=== PATIENT | female | born 1995 | race Caucasian/White ===

== ENCOUNTER → 2018-07-08 18:24 | Outpatient (CLI) | payer SELFPAY | PROVIDERS: Family Provider Family Medicine; PCP Family Medicine; Referring Provider Otolaryngology Otolaryngology/Facial Plastic Surgery; Visit Provider Otolaryngology Otolaryngology/Facial Plastic Surgery | DX: J32.9 Chronic sinusitis, unspecified (principal); J02.9 Acute pharyngitis, unspecified | CPT/HCPCS: 87070; 87077; 87205 ==

== ENCOUNTER → 2019-02-26 | Outpatient (CLI) | payer OTHER, SELFPAY ==
--- NOTE | 2019-02-26 11:44 | RAD_ITS ---
CLINICAL HISTORY: Female, 23 years old. Left hip pain. PROCEDURE: ARTHROGRAM - LEFT HIP CONSENT: The procedure as well as the benefits and possible complications including infection and bleeding with spine to the patient. Informed consent was obtained. FLUOROSCOPY TIME (if supplied): (0:30) minutes/seconds Injection Information: 10 cc of dilute Magnevist. Number of images obtained: 1 TECHNIQUE: (All elements of maximal sterile barrier technique followed, including US elements as applicable) The patient was in the supine position. Overlying skin was prepped and draped in usual sterile fashion. Final concentric complication and under direct fluoroscopic guidance, a 22-gauge spinal needle was placed into the hip joint. 2 cc of Isovue-300 was injected for confirmation. Following this, 10 cc of dilute Magnevist was injected. The patient tolerated the procedure well. MRI will follow. RAD/Arthrogram Hip w/ MRI IMPRESSION: Successful left hip arthrogram for MRI. Electronically Signed: Ravi Aragon, at 13:05 EDT , Service support ,
--- NOTE | 2019-02-26 13:00 | MRI_ITS ---
STUDY: MRI ARTHROGRAM OF LEFT HIP REASON FOR EXAM: Female, 23 years old. 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 TECHNIQUE: Standardized fat and water weighted pulse sequences were obtained in all 3 orthogonal planes after the intra-articular administration of a solution containing 2 cc of Isovue-300 contrast and 10 cc of dilute Magnevist. COMPARISON: MR arthrogram performed today. FINDINGS: There is adequate distention of the left hip joint. Normal hip joint without articular joint space narrowing. Normal acetabulum. Nondisplaced tear of the base of the anterior superior acetabular labrum (coronal series 5 image 17, sagittal series 6 images 15-18). Normal femoral head. Normal femoral neck and intratrochanteric region. Normal gluteus minimus, medius and iliopsoas tendons and distal insertions. There is no trochanteric, iliopsoas or iliopectineal bursitis. Normal superior and inferior pubic rami. Normal pubic symphysis. Normal ischial tuberosity. Normal origin of the hamstring tendons. Normal visualized iliac wing, sacroiliac joint, and sacral ala. Normal visualized soft tissue structures of the pelvis. MRI/Lower Ext/Jt Only/W Contrast IMPRESSION: Nondisplaced tear of the base of the anterior superior acetabular labrum. No other abnormality. Electronically Signed: Jese Morrell MD at 17:59 EDT , Service support ,
== END | disposition home or self-care (01) ==
LOC: RAD 11:36 → MRI 11:38
PROVIDERS: Family Provider Internal Medicine; PCP Internal Medicine; Referring Provider Physician Assistant Surgical; Visit Provider Physician Assistant Surgical
DX: M25.552 Pain in left hip (principal)
CPT/HCPCS: 27093; 73722; 77002; A9575; Q9967

== ENCOUNTER → 2020-11-27 14:58 | Outpatient (CLI) | payer BC, SELFPAY ==
--- NOTE | 2020-11-27 15:01 | VDLE_ITS ---
Reason For Study: PAIN RIGHT LEFT CFV is compressible, spontaneous, phasic, GSV is normal. competent and demonstrates normal CFV is compressible, spontaneous, phasic, augmentation. competent, and demonstrates normal Procedure augmentation. Exam performed in department. FV is compressible, spontaneous, phasic, A preliminary report was called and/or faxed competent and demonstrates normal to JENNIFER ESTRELLA. augmentation. POP V is compressible, spontaneous, phasic, competent and demonstrates normal augmentation. T/P Trunk is compressible. PTV is compressible. LT PerV is compressible. VL/Venous Duplex US, Unilateral Interpretation Summary Deep veins of the left lower extremity are patent and compressible segmentally. There is no evidence of left lower extremity deep vein thrombosis. Valvular competence appears intac t within the proximal deep venous system on the left . The left great saphenous vein appears patent a nd compressible segmentally. Ordering Physician: Jennifer Estrella Referring Physician: CAMILLE NORRIS Performed By: Vanna Mcdermott, SHALONDACS, RVT
== END ==
PROVIDERS: PCP Internal Medicine; Referring Provider Nurse Practitioner; Visit Provider Nurse Practitioner
DX: M79.605 Pain in left leg (principal)
CPT/HCPCS: 93971

== ENCOUNTER 2022-07-11 14:01 | Emergency (ER) | payer BC, SELFPAY ==
[2022-07-11 14:02] VITALS: BP 127/96; PULSE 113; RESP 17; TEMP 36.6; O2SAT 99; BMI 17.4
--- NOTE | 2022-07-11 14:44 | EX.ED.DYSGE1 ---
HPI History of Present Illness Chief Complaint: Nausea/Vomiting/Diarrhea Narrative Narrative: Patient presents with few day history of nausea vomiting and watery diarrhea. She also has intermittent abdominal cramping. She does not know of any sick contacts. She has no fevers or chills. She has no urinary symptoms. She is denying . She has no upper respiratory symptoms or shortness of breath she did notice a temperature up to 99 PFSH PFS Medical History no medical history Home Medications dicyclomine 20 mg tablet 20 mg PO BID #10 tabs 07/11/22 [Rx Last Taken Unknown] potassium chloride 40 mEq/15 mL oral liquid 40 meq (15 mL) PO DAILY #473 mL 07/11/22 [Rx Last Taken Unknown] Allergy/AdvReac Type Severity Reaction Status Date / Time No Known Allergies Allergy Verified 07/11/22 14:01 Social History Smoking Status: Never smoker ROS ROS ED ROS Narrative Past medical history: Reviewed, none Medications: Reviewed Social history: Noncontributory Review of systems: All systems negative except as indicated General: No fever Eyes: No visual changes ENT: No upper airway congestion, normal voice Neck: No neck pain Cardiovascular: No chest pain Respiratory: No shortness of breath or cough Gastrointestinal: As in HPI Genitourinary: No dysuria Musculoskeletal: Denies myalgias no difficulty with ambulation Skin: No rash Neurological: No memory loss, confusion or any focal weakness Psych: No recent behavioral changes Hematologic: No easy bleeding or easy bruising EXAM Physical Exam Narrative Exam Narrative: Physical exam General: Well nourished, Well developed, No Acute Distress Head: Normocephalic, Atraumatic Eyes: Conjunctiva not pale ENT: Somewhat dry mucous membranes Neck: Supple, Nontender, No lymphadenopathy Cardiovascular: Regular rate, Regular rhythm Respiratory: No distress, CTA bilaterally Abdomen: Soft, I am palpating throughout the abdomen I do not appreciate any pain. Back: Nontender, Normal Inspection. Negative for: CVA tenderness Extremities: Nontender, No edema Skin: Normal color, No rash Neurological: Alert, Normal Strength, Normal Sensation Psychological: Normal affect Const Vital Signs: 07/11/22 14:02 Temperature 97.8 F Temperature Source Temporal Pulse Rate 113 H Respiratory Rate 17 Blood Pressure 127/96 H Blood Pressure Mean 106 Pulse Ox 99 Oxygen Delivery Method Room Air MDM MDM MDM Narrative Medical decision making narrative: Patient's work-up is unremarkable, she likely has a viral GI etiology. She improved after IV fluids, her potassium was slightly low which I will address. Otherwise I believe she can be safely discharged home. Lab Data Labs: Laboratory Results - last 24 hr 07/11/22 07/11/22 07/11/22 14:24 14:24 15:24 WBC 2.8 L RBC 5.11 Hgb 15.3 H Hct 44.0 MCV 86.1 MCH 29.9 MCHC 34.8 RDW Std Deviation 37.6 RDW Coeff of Jenny 11.9 Plt Count 221 MPV 9.3 Immature Gran % (Auto) 0.400 Neut % (Auto) 56.9 Lymph % (Auto) 24.0 Leake % (Auto) 17.9 H Eos % (Auto) 0.4 Baso % (Auto) 0.4 Absolute Neuts (auto) 1.6 L Absolute Lymphs (auto) 0.67 L Nucleated RBC % 0 Sodium 137 Potassium 2.9 L Chloride 105 Carbon Dioxide 24.0 Anion Gap 8 BUN 12 Creatinine 0.94 Estim Creat Clear Calc 63.54 Est GFR (MDRD) Af Amer 92 Est GFR (MDRD) Non-Af 76 BUN/Creatinine Ratio 12.8 Glucose 98 Calcium 8.7 Total Bilirubin 0.30 AST 47 H ALT 60 H Alkaline Phosphatase 59 Total Protein 7.7 Albumin 4.2 Globulin 3.5 Albumin/Globulin Ratio 1.2 Lipase 101 Urine Color Straw Urine Clarity Clear Urine pH 6.5 Ur Specific [place] 1.010 Urine Protein Negative Urine Glucose (UA) Normal Urine Ketones Negative Urine Occult Blood Negative Urine Nitrite Negative Urine Bilirubin Negative Urine Urobilinogen Normal Ur Leukocyte Esterase Negative Urine RBC 0 SEEN Urine WBC 0 SEEN Ur Squamous Epith Cells 0-5 SEEN Urine Bacteria RARE Urine Mucus 0 SEEN Urine Test Negative Discharge Plan Triage Chief Complaint: Nausea/Vomiting/Diarrhea ED Provider: Anjel Gonsalez Dx/Rx/DC Orders Clinical Impression: Acute hypokalemia, Diarrhea Prescriptions: New potassium chloride 40 mEq/15 mL liquid 40 meq PO DAILY Qty: 473 0RF dicyclomine 20 mg tablet 20 mg PO BID Qty: 10 0RF Primary Care Provider: Emmanuelle De León Referrals: Emmanuelle De León DO [Primary Care Provider] - 3-5 Days Disposition Disposition: Home, Self Care
[2022-07-11 15:15] LABS: Absolute Lymphocyte Count 0.67 X10^3/uL (0.83-4.51); Absolute Neutrophil Count 1.6 X10^3/uL (2.0-7.7); Basophil# 0.01 X10^3/uL; Basophil% 0.4 % (0-1); Eosinophil# 0.01 X10^3/uL; Eosinophils% 0.4 % (0-5); Hemoglobin 15.3 g/dL (12.0-15.0); Lymphocyte # 0.67 X10^3/ul (0.83-4.51); Mean Corp Hgb Conc 34.8 g/dL (32-36); Mean Corpuscular Hgb 29.9 pg (27.0-32.0); Mean Corpuscular Volume 86.1 fL (81-99); Mean Platelet Vol. 9.3 fl (6.2-12.0); Monocyte% 17.9 % (0-10); NRBC Flagged by Analyzer 0 % (0-5); Neutrophil # 1.59 X10^3/uL (2.7-7.7); Neutrophil % 56.9 % (47-70); Platelet Count 221 K/mm3 (150-450); RBC Distribution Width CV 11.9 % (11.6-14.6); RBC Distribution Width SD 37.6 fl (35.1-43.9); Red Blood Count 5.11 M/mm3 (4.2-5.4); White Blood Count 2.8 K/mm3 (4.4-11.0)
[2022-07-11] MEDS: Ondansetron 4 MG/2 ML Vial IV (15:22)
[2022-07-11] MEDS: 0.9% Normal Saline 1,000 ML 1000 ML IV (15:22)
[2022-07-11 15:30] LABS: Mucous, Urine 0 SEEN /hpf (<or=2+); Red Blood Cells-Urine 0 SEEN /hpf (0-5); White Blood Cells 0 SEEN /hpf (0-5)
[2022-07-11 15:34] LABS: Color, Urine Straw (Yellow); Glucose, Dipstick Normal (Normal); Ketone-Dipstick Negative (Negative); Leukocyte Esterase-Dipstick Negative /ul (Negative); Nitrite-Dipstick Negative (Negative); Occult Blood-Urine Negative /ul (Negative); Protein-Dipstick Negative (Negative); Urine Bilirubin Dipstick Negative (Negative); Urine Clarity Clear (Clear); Urine Urobilinogen Normal (Normal); Urine pH 6.5 (5.0 - 8.0)
[2022-07-11 15:39] LABS: Internal QC Validated? YES +Cl - CLEAR BKGD; Pregnancy, Urine Negative Negative
[2022-07-11 15:41] LABS: ALB/GLOB Ratio 1.2 RATIO (0.9-2.4); AST(SGOT) 47 U/L (15-37); Alanine Aminotransfer ALT/SGPT 60 U/L (13-56); Albumin, Serum 4.2 g/dL (3.2-5.0); Alkaline Phosphatase 59 U/L (45-117); Anion Gap 8 (5-15); BUN 12 mg/dL (7-18); BUN/Creat Ratio 12.8 RATIO (10-20); Calcium,Total 8.7 mg/dL (8.5-10.1); Chloride 105 mmol/L (98-107); Creatinine, Serum 0.94 mg/dL (0.55-1.02); EST Glomerular Filtration Rate 76 mL/min (>60); Est Glom Filt Rate - Afr Amer 92 mL/min (>60); Estimated Creatinine Clearance 63.54 ml/min; Globulin 3.5 g/dL (2.2-4.2); Glucose 98 mg/dL (74-106); Lipase 101 U/L (73-393); Potassium 2.9 mmol/L (3.5-5.1); Protein, Total 7.7 g/dL (6.4-8.2); Sodium Level 137 mmol/L (136-145)
[2022-07-11 16:07] LABS: Bacteria RARE /hpf (None Seen); Squamous Epithelial Cells - UA 0-5 SEEN /hpf (5-10)
[2022-07-11] MEDS: Potassium Chloride Oral Tablet 20 MEQ 40 MEQ PO (18:12)
[2022-07-11 18:17] VITALS: PULSE 69; RESP 16; O2SAT 97
== END 2022-07-11 18:17 | disposition home or self-care (01) ==
PROVIDERS: Emergency Provider Emergency Medicine; PCP Internal Medicine; Visit Provider Emergency Medicine
DX: E87.6 Hypokalemia (principal); R10.9 Unspecified abdominal pain; R19.7 Diarrhea, unspecified; R11.2 Nausea with vomiting, unspecified
CPT/HCPCS: 80053; 81001; 81025; 83690; 85025; 87428; 96361; 96374; 99284; J7030; J2405

== ENCOUNTER → 2023-10-30 | Outpatient (CLI) | payer BC, SELFPAY ==
[2023-10-30 12:28] LABS: Absolute Lymphocyte Count 1.67 X10^3/uL (0.83-4.51); Absolute Neutrophil Count 1.9 X10^3/uL (2.0-7.7); Basophil# 0.02 X10^3/uL; Basophil% 0.5 % (0-1); Eosinophil# 0.07 X10^3/uL; Eosinophils% 1.7 % (0-5); Hemoglobin 13.3 g/dL (12.0-15.0); Lymphocyte # 1.67 X10^3/ul (0.83-4.51); Lymphocyte % 41.1 % (19-41); Mean Corp Hgb Conc 34.1 g/dL (32-36); Mean Corpuscular Hgb 30.6 pg (27.0-32.0); Mean Corpuscular Volume 89.7 fL (81-99); Mean Platelet Vol. 9.1 fl (6.2-12.0); Monocyte# 0.38 X10^3/uL; Monocyte% 9.4 % (0-10); NRBC Flagged by Analyzer 0 % (0-5); Neutrophil # 1.91 X10^3/uL (2.7-7.7); Neutrophil % 47.1 % (47-70); Platelet Count 278 K/mm3 (150-450); RBC Distribution Width CV 12.2 % (11.6-14.6); RBC Distribution Width SD 40.1 fl (35.1-43.9); Red Blood Count 4.35 M/mm3 (4.2-5.4); White Blood Count 4.1 K/mm3 (4.4-11.0)
[2023-10-30 12:47] LABS: ALB/GLOB Ratio 1.3 RATIO (0.9-2.4); AST(SGOT) 31 U/L (15-37); Alanine Aminotransfer ALT/SGPT 34 U/L (13-56); Albumin, Serum 4.1 g/dL (3.2-5.0); Alkaline Phosphatase 63 U/L (45-117); Anion Gap 4 (5-15); BUN 19 mg/dL (7-18); BUN/Creat Ratio 24.3 RATIO (10-20); Chloride 105 mmol/L (98-107); Creatinine, Serum 0.78 mg/dL (0.55-1.02); EST Glomerular Filtration Rate 93 mL/min (>60); Est Glom Filt Rate - Afr Amer 113 mL/min (>60); Globulin 3.2 g/dL (2.2-4.2); Glucose 89 mg/dL (74-106); Potassium 3.4 mmol/L (3.5-5.1); Protein, Total 7.3 g/dL (6.4-8.2); Sodium Level 137 mmol/L (136-145); Thyroid Stim Hormone (TSH) 2.42 uIU/mL (0.358-3.74)
[2023-10-30 13:01] LABS: Insulin 3.6 mU/L (2.6-37.6); Vitamin D,25 Hydroxy 42.9 ng/mL
== END | disposition home or self-care (01) ==
LOC: BIMLAB 08:19
PROVIDERS: PCP Internal Medicine; Referring Provider Internal Medicine; Visit Provider Internal Medicine
DX: R25.1 Tremor, unspecified (principal); F41.9 Anxiety disorder, unspecified; E16.2 Hypoglycemia, unspecified
CPT/HCPCS: 36415; 80053; 82306; 83525; 84443; 85025

== ENCOUNTER → 2024-10-28 | Outpatient (CLI) | payer BC, SELFPAY ==
[2024-10-28 13:00] LABS: Absolute Lymphocyte Count 1.75 X10^3/uL (0.83-4.51); Absolute Neutrophil Count 2.6 X10^3/uL (2.0-7.7); Basophil# 0.04 X10^3/uL; Basophil% 0.8 % (0-1); Eosinophil# 0.12 X10^3/uL; Eosinophils% 2.4 % (0-5); Hematocrit 38.6 % (37-47); Hemoglobin 13.3 g/dL (12.0-15.0); Lymphocyte # 1.75 X10^3/ul (0.83-4.51); Lymphocyte % 35.1 % (19-41); Mean Corp Hgb Conc 34.5 g/dL (32-36); Mean Corpuscular Hgb 30.5 pg (27.0-32.0); Mean Corpuscular Volume 88.5 fL (81-99); Monocyte# 0.49 X10^3/uL; Monocyte% 9.8 % (0-10); NRBC Flagged by Analyzer 0 % (0-5); Neutrophil # 2.58 X10^3/uL (2.7-7.7); Neutrophil % 51.7 % (47-70); Platelet Count 293 K/mm3 (150-450); RBC Distribution Width CV 12.2 % (11.6-14.6); RBC Distribution Width SD 40.2 fl (35.1-43.9); Red Blood Count 4.36 M/mm3 (4.2-5.4)
[2024-10-28 14:03] LABS: ALB/GLOB Ratio 1.9 RATIO (0.9-2.4); AST(SGOT) 26 U/L (<=31); Alanine Aminotransfer ALT/SGPT 21 U/L (<=34); Albumin, Serum 4.5 g/dL (3.5-5.0); Alkaline Phosphatase 61 U/L (35-104); Anion Gap 12 (5-15); BUN 13 mg/dL (4-19); BUN/Creat Ratio 15.8 RATIO (10-20); Calcium,Total 9.4 mg/dL (7.6-11.0); Carbon Dioxide 21.9 mmol/L (21.0-32.0); Chloride 105 mmol/L (98-108); Creatinine, Serum 0.84 mg/dL (0.70-1.20); EST Glomerular Filtration Rate 97 (>60); Globulin 2.4 g/dL (2.2-4.2); Glucose 88 mg/dL (70-99); Potassium 4.1 mmol/L (3.3-5.1); Protein, Total 6.9 g/dL (5.9-8.4); Rheumatoid Factor < 10.0 IU/mL (<15); Sodium Level 138 mmol/L (133-145); Total Bilirubin 0.35 mg/dL (0.00-1.30); Vitamin D,25 Hydroxy 33.3 ng/mL (30-100)
[2024-10-29 12:08] LABS: ANTINUCLEAR ANTIBODIES DIRECT Negative (Negative); Anti-Centromere B Ab <0.2 AI (0.0-0.9); Anti-Chromatin <0.2 AI (0.0-0.9); Anti-Jo <0.2 AI (0.0-0.9); Anti-Scleroderma-70 AB <0.2 AI (0.0-0.9); Anti-dsDNA Ab <1 IU/mL (0-9); CCP IgG Antibodies 8 units (0-19); RNP Ab <0.2 AI (0.0-0.9); SJOGREN'S Anti-SS-A test < 0.2 AI (0.0-0.9); SJOGREN'S Anti-SS-B test < 0.2 AI (0.0-0.9); Smith Ab <0.2 AI (0.0-0.9)
== END | disposition home or self-care (01) ==
LOC: BIMLAB 08:57
PROVIDERS: PCP Internal Medicine; Visit Provider Internal Medicine
DX: F32.A Depression, unspecified (principal); F41.9 Anxiety disorder, unspecified; M25.50 Pain in unspecified joint
CPT/HCPCS: 36415; 80053; 82306; 85025; 86038; 86200; 86225; 86235; 86431